=== PATIENT | male | born 1945 | race African-American/Black ===

== ENCOUNTER → 2021-07-02 | Outpatient (CLI) | payer OTHER ==
[~2021-07-02] MED LIST: KLOR-CON 1010 MEQ PO; MULTI VITAMIN1 EACH PO; VITAMIN C1000 MG PO; VITAMIN D350 MC3 PO
== END ==
LOC: LAB 09:13
PROVIDERS: ATTEND Student in an Organized Health Care Education/Training Program
DX: Z01.812 Encounter for preprocedural laboratory examination (principal); Z20.822 Contact with and (suspected) exposure to COVID-19

== ENCOUNTER → 2021-07-04 | Outpatient (CLI) | payer OTHER ==
[~2021-07-04] VITALS: Ht 182.9 cm; Wt 83.9 kg
--- NOTE | 2021-07-06 10:23 | P ---
[facility] [place] [address] PROCEDURE REPORT Name: SP TUTTLE Room #: REG GOPAL Babita#: [id number] Admission: 07/04/21 Attend Phys: Hood Wilkins Discharge: Date of : 47 Report #: [id number] THIS REPORT FOR: cc: Andi Yan MD,Hood Mead MD, MD ~ cc: Andi Yan MD DATE OF SERVICE: 07/04/2021 PROCEDURE PERFORMED: Colonoscopy with biopsies. HISTORY OF PRESENT ILLNESS: The patient is a 75-year-old male with a history of colon polyps, here for a 5-year followup. Denies any symptoms, no family history of colon cancer. DESCRIPTION OF PROCEDURE: The risks and benefits of the procedure were explained to the patient, those risks including but not limited to bleeding, perforation and the risk of sedation. He understood these risks and gave informed consent. Sedation was given using propofol per anesthesia. Next, a digital rectal exam was initially performed, which was normal. Next, using a standard Olympus colonoscope, the scope was placed in the patient's anus and advanced under direct vision to the cecum. The overall prep was good. Cecum and ileocecal valve were normal in appearance. The ascending colon was normal. In the transverse colon, 2 sessile polyps were noted. The largest was 6 mm, the smaller was 4 mm, both removed by cold forceps. Descending colon was normal. A few small scattered diverticula were noted in the sigmoid colon. Also noted was a 3 mm sessile polyp. This was removed with cold forceps. In the rectum, another 3 mm sessile polyp also removed with cold forceps. On retroflexion, small nonbleeding internal hemorrhoids were noted. The scope was then withdrawn and the procedure terminated. The patient tolerated the procedure well. IMPRESSION: 1. Colonic polyps. 2. Sigmoid diverticulosis. 3. Internal hemorrhoids. 4. Otherwise, normal colonoscopy. RECOMMENDATIONS: 1. Await biopsy results. 2. Repeat colonoscopy in [address] [address] PROCEDURE REPORT Name: SP TUTTLE Room #: REG GOPAL Jc#: [id number] Admission: 07/04/21 Attend Phys: Hood Wilkins Discharge: Date of : 47 Report #: [id number] Thank you for allowing me to participate in his care. <ELECTRONICALLY SIGNED> By: Hood Fernández MD 07/06/21 1023 [id number] Hood Fernández MD /nt
--- NOTE | 2021-07-06 15:07 | PATH ---
[facility] [place] [address] PATHOLOGY RPT PROCEDURE Name: GRUPO TUTTLE Room #: REG [facility].#: [id number] Admission: 07/04/21 Date of : 47 Discharge: Report #: [id number] Path Case #: [id number] [facility] Accession Number: [id number] . 01 Material submitted: . PART A: colon - TRANSVERSE COLON POLYP X2. Modifiers: transverse, X2 PART B: sigmoid colon - SIGMOID COLON POLYP PART C: rectum - RECTAL POLYP . 01 Clinical history: . COLONOSCOPY HX OF POLYPS . 01 Frozen section diagnosis: . . /QMS . 02 Diagnosis: A. 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 - Remainder of fragments showing hyperplastic changes as well as a lymphoid aggregate without any dysplasia. . B. Polyp, sigmoid polyp, endoscopic biopsy: - Hyperplastic polyp. - Negative for dysplasia. . C. Polyp, rectal polyp, endoscopic biopsy: - Hyperplastic polyp. - Negative for dysplasia. . (IUV:carpenter form; 07/05/2021) MBR 07/05/2021 1329 Local . 02 Electronically signed: . Itzel Nicolas MD, Pathologist NPI- [id number] . 01 Gross description: . A. The specimen is submitted in formalin, labeled "Grupo Tuttle, transverse colon". Received are 4 segments of pale johnston tissue ranging in size from 0.3 to 0.4 cm in maximum dimensions. The specimen is submitted entirely in cassette A1. . B. The specimen is submitted in formalin, labeled "Grupo Tuttle, sigmoid colon polyp". Received are 2 segments of pale johnston tissue ranging [place] [id number] PATHOLOGY RPT PROCEDURE Name: GRUPO TUTTLE A Room #: REG [facility]#: [id number] Admission: 07/04/21 Date of : 47 Discharge: Report #: [id number] Path Case #: [id number] in size from 0.2 to 0.4 cm in maximum dimensions. The specimen is submitted entirely in cassette B1. . C. The specimen is submitted in formalin, labeled "Grupo Tuttle, rectal polyp". Received are 2 segments of pale johnston tissue ranging in size from 0.2 to 0.3 cm in maximum dimensions. The specimen is submitted entirely in cassette C1. ([facility]; 07/04/2021) NRI/NRI 07/04/2021 2219 Local . 02 Pathologist provided ICD-10: D12.3, K63.5, K62.1 . 02 CPT . 946444, 576217, 521205 Specimen Comment: A courtesy copy of this report has been sent to [phone], [phone] Specimen Comment: [id number] Specimen Comment: Report sent to / DR SOLOMON Specimen Comment: A duplicate report has been generated due to demographic updates. Performed at: [address] [facility], [place] [id number] MD Cj Jack MD Phone: [phone] Performed at: [address] [id number] MD Itzel Nicolas MD Phone: [phone]
== END | disposition home or self-care (01) ==
LOC: GI 06:35 → EDSTATUS 08:33 → GI 09:13
PROVIDERS: ATTEND Specialist
DX: Z12.11 Encounter for screening for malignant neoplasm of colon (principal); Z86.010 Personal history of colon polyps; D12.3 Benign neoplasm of transverse colon; K57.30 Diverticulosis of large intestine without perforation or abscess without bleeding; K64.8 Other hemorrhoids; Z98.890 Other specified postprocedural states; Z79.899 Other long term (current) drug therapy; Z87.891 Personal history of nicotine dependence; Z90.49 Acquired absence of other specified parts of digestive tract
CPT/HCPCS: 62110; 62900